=== PATIENT | male | born 1980 | race Caucasian/White ===

== ENCOUNTER 2019-06-20 10:08 | Emergency (ER) | payer OTHER, SELFPAY ==
[2019-06-20 10:50] VITALS: BP 136/91; PULSE 85; RESP 18; TEMP 36.8; O2SAT 98
--- NOTE | 2019-06-20 11:04 | ED.URI ---
HPI - URI/Sore Throat General Chief Complaint: Upper Respiratory Infection Stated Complaint: Cough Time Seen by Provider: 06/20/19 11:04 Source: patient and family History of Present Illness HPI Narrative: Patient presents with a cough, no chest pain no shortness of breath does have nasal congestion no fever no body aches. Patient states she is a normally healthy individual patient states his son tested positive for strep 5 days ago and is worried that he may have strep throat. Patient states no trouble swallowing no drooling. MD elicited complaint: cough, rhinorrhea and nasal congestion Related Data Home Medications Medication Instructions Recorded Confirmed atorvastatin 10 mg PO DAILY 06/20/19 06/20/19 dulaglutide [Trulicity] 1.5 mg SUBCUT WEEKLY 06/20/19 06/20/19 metformin 500 mg PO BID 06/20/19 06/20/19 Allergies Allergy/AdvReac Type Severity Reaction Status Date / Time Penicillins Allergy Unknown Verified 06/20/19 10:46 Review of Systems Review of Systems: Narrative: CONSTITUTIONAL: Denies chills, or sweats. Reports fever and generalized body aches EYES: Denies visual changes, redness, or discharge. ENT: Denies otalgia. Reports nasal congestion runny nose and sore throat CARDIOVASCULAR: Denies chest pain, palpitations, or edema. RESPIRATORY: Denies dyspnea. Reports occasional cough GASTROINTESTINAL: Denies abdominal pain, nausea, vomiting, or diarrhea. GENITOURINARY: Denies dysuria or hematuria. SKIN: Denies rash or itching. MUSCULOSKELETAL: Denies back pain, joint pain, or myalgia. Reports generalized body aches NEUROLOGIC: Denies headache, numbness, or weakness. PSYCHIATRIC: Denies anxiety or depression. PMFSH Comments At time of signature, agree with nursing past medical, surgical, social and family history. There is no relevant family history pertinent to the presenting complaint Exam Narrative: Exam Narrative: GENERAL APPEARANCE: The patient is a well-developed, well-nourished , in no acute distress. SKIN: Skin is warm and dry without erythema, swelling or exudate. There is good turgor. No tenting. HEAD: Atraumatic. Normocephalic. No temporal or scalp tenderness. EYES: Moist and bright. Sclera and conjunctivae normal. No discharge. PERRLA. Extraocular motions intact. Gross visual acuity intact. EARS: Pinna is normal shape and contour. Clear external auditory canals. TM pearly castellanos with good cone of light, no erythema or suppuration. Bilateral cerumen noted no gross hearing deficit. NOSE: pink, moist mucosa with good air movement. Clear rhinorrhea without nasal flaring. Septum midline. Mild pharyngeal erythremia no exudate no trismus no drooling can open mouth fully Mouth: moist mucous membranes. THROAT; mild erythema noted to posterior oropharynx with moderate postnasal drainage. Without exudate or ulceration.. Uvula midline. Normal movement of soft palate. NECK: Supple and nontender with full range of motion without discomfort. No meningeal signs. LUNGS: Equal and bilateral breath sounds without wheezes, rales or rhonchi. CHEST: The chest wall is without retractions or use of accessory muscles. HEART: Has a regular rate and rhythm without murmur, gallops, click or rub. ABDOMEN: Soft, nontender with positive active bowel sounds. No rebound tenderness. EXTREMITIES: Without cyanosis, clubbing or edema. Equal 2+ distal pulses and 2 second capillary refill noted. NEUROLOGIC: alert, active, developmentally normal for age. The patient moves all extremities with normal muscle strength. Normal muscle tone is noted. Normal coordination is noted. NO focal neurological findings noted. Course Vital Signs Vital signs: Vital Signs Temperature 36.8 C 06/20/19 10:50 Pulse Rate 85 06/20/19 10:50 Respiratory Rate 06/20/19 10:50 Blood Pressure 136/91 H 06/20/19 10:50 Pulse Oximetry 98 06/20/19 10:50 Temperature 36.8 C 06/20/19 10:50 Pulse Rate 85 06/20/19 10:50 Respiratory Rate 18 06/20/19 10
== END 2019-06-20 11:33 | disposition home or self-care (01) ==
PROVIDERS: Emergency Provider Nurse Practitioner Family; PCP Internal Medicine Geriatric Medicine
DX: J06.9 Acute upper respiratory infection, unspecified (principal); J02.9 Acute pharyngitis, unspecified; E78.00 Pure hypercholesterolemia, unspecified; I10 Essential (primary) hypertension; E11.9 Type 2 diabetes mellitus without complications
CPT/HCPCS: 87081; 87880; 99203; G0463

== ENCOUNTER 2022-05-28 11:05 | Emergency (ER) | payer OTHER, SELFPAY ==
--- NOTE | 2022-05-28 11:08 | ED.URI ---
HPI - URI/Sore Throat General Chief Complaint: Upper Respiratory Infection Stated Complaint: Cold/flu Time Seen by Provider: 05/28/22 11:08 Source: patient and RN notes reviewed History of Present Illness HPI Narrative: patient is a 41-year-old male who presents to urgent care with complaints of cough, fatigue, sinus pressure and drainage. Patient states it started on Saturday and he was too fatigued to go to work today. Patient denies any ill exposures. Denies any fever, nausea or vomiting. States that he has been taking Mucinex for the cough. No other acute complaints. No acute distress noted. Patient aware of the plan of care. Some parts of this dictation were generated by voice recognition software and may contain typographical and/or grammatical inaccuracies. Related Data Home Medications Medication Instructions Recorded Confirmed atorvastatin 10 mg tablet 10 mg PO DAILY 06/20/19 06/20/19 dulaglutide 1.5 mg/0.5 mL 1.5 mg subcut WEEKLY 06/20/19 06/20/19 subcutaneous pen injector (Trulicity) metformin 500 mg tablet 500 mg PO BID 06/20/19 06/20/19 fluoxetine 20 mg tablet mg 05/28/22 glimepiride 2 mg tablet 2 mg DIRECTED 05/28/22 05/28/22 losartan 50 mg tablet mg 05/28/22 Allergies Allergy/AdvReac Type Severity Reaction Status Date / Time Penicillins Allergy Unknown Verified 06/20/19 10:46 Review of Systems Review of Systems: CONSTITUTIONAL: Denies fever, chills, or sweats. reports of fatigue EYES: Denies visual changes, redness, or discharge. ENT: Reports of congestion, postnasal drainage CARDIOVASCULAR: Denies chest pain, palpitations, or edema. RESPIRATORY: reports of cough without dyspnea GASTROINTESTINAL: Denies abdominal pain, nausea, vomiting, or diarrhea. GENITOURINARY: Denies dysuria or hematuria. SKIN: Denies rash or itching. MUSCULOSKELETAL: Denies back pain, joint pain, or myalgia. NEUROLOGIC: Denies headache, numbness, or weakness. All other systems reviewed are negative, except as documented in HPI. PMFSH Comments At the time of my signature, I reviewed and agree with the nursing past medical, surgical, social, and family history. There is no relevant family history pertinent to the patient complaint. Exam Narrative: GENERAL: This is a well-nourished, well-developed patient, in no apparent distress. HEAD: normocephalic, atraumatic. EYES: PERRL. Sclera clear/white. Vision is grossly intact. EARS: External ears normal, auditory canals clear and without drainage, TMs normal without perforation. Hearing grossly intact. NOSE: External nose normal with no obvious nasal discharge, nares without redness, clear rhinorrhea. THROAT: Mucous membranes moist, posterior pharynx clear. mild postnasal drainage NECK: Neck supple, non-tender without lymphadenopathy, masses or thyromegaly. CARDIOVASCULAR: Regular rate and rhythm without murmurs, gallops, or rubs. RESPIRATORY: Clear to auscultation. Breath sounds equal bilaterally. No wheezes, rales, or rhonchi. SKIN: warm, intact with no suspicious lesions or rash, good texture and turgor. NEURO: awake, alert, and oriented to person, place and time. There were no obvious focal neurologic abnormalities. EXTREMITIES: No clubbing, cyanosis, or edema. Course Course Level of Care: Express Care Visit Vital Signs Vital signs: Vital Signs Temperature 98.8 F 05/28/22 11:10 Pulse Rate 104 H 05/28/22 11:10 Respiratory Rate 20 05/28/22 11:10 Blood Pressure 129/87 05/28/22 11:10 Pulse Oximetry 98 05/28/22 11:10 Oxygen Delivery Room Air 05/28/22 11:10 Temperature 98.8 F 05/28/22 11:10 Pulse Rate 104 H 05/28/22 11:10 Respiratory Rate 20 05/28/22 11:10 Blood Pressure 129/87 05/28/22 11:10 Pulse Oximetry 98 05/28/22 11:10 Oxygen Delivery Room Air 05/28/22 11:10 reviewed MDM - URI/Sore Throat MDM Narrative Medical decision making narrative: advised patient to use [id number] medications such as Z
[2022-05-28 11:10] VITALS: BP 129/87; PULSE 104; RESP 20; TEMP 37.1; O2SAT 98
== END 2022-05-28 11:48 | disposition home or self-care (01) ==
PROVIDERS: Emergency Provider Nurse Practitioner Family; PCP Internal Medicine Geriatric Medicine
DX: B34.9 Viral infection, unspecified (principal); E78.00 Pure hypercholesterolemia, unspecified; I10 Essential (primary) hypertension; E11.9 Type 2 diabetes mellitus without complications; F41.9 Anxiety disorder, unspecified
CPT/HCPCS: 99211; G0463

== ENCOUNTER 2023-03-01 15:12 | Emergency (ER) | payer OTHER, SELFPAY ==
--- NOTE | 2023-03-01 15:18 | ED.BACK ---
HPI - Back Pain/Injury General Chief Complaint: Skin/Abscess/Foreign Body Stated Complaint: Lower Back Irritation Source: patient and RN notes reviewed History of Present Illness HPI Narrative: 42 yo M presents to urgent care with complaints of itchy bumps to his back. Pt states they appeared the first time 2 weeks ago and lasted about a week. Pt states they went away on their own but then reappeared in the same place. Pt reports associated itchiness. Denies any fevers, chills, or other symptoms. Related Data Home Medications Medication Instructions Recorded Confirmed atorvastatin 10 mg tablet 10 mg PO DAILY 06/20/19 05/28/22 dulaglutide 1.5 mg/0.5 mL 1.5 mg subcut WEEKLY 06/20/19 05/28/22 subcutaneous pen injector ([facility]) metformin 500 mg tablet 500 mg PO BID 06/20/19 05/28/22 fluoxetine 20 mg tablet 20 mg DIRECTED 05/28/22 05/28/22 glimepiride 2 mg tablet 2 mg DIRECTED 05/28/22 05/28/22 losartan 50 mg tablet 50 mg DIRECTED 05/28/22 05/28/22 Allergies Allergy/AdvReac Type Severity Reaction Status Date / Time Penicillins Allergy Unknown Verified 06/20/19 10:46 Review of Systems Review of Systems: CONSTITUTIONAL: Denies fever, chills, or sweats. EYES: Denies visual changes, redness, or discharge. ENT: Denies otalgia and sore throat CARDIOVASCULAR: Denies chest pain, palpitations, or edema. RESPIRATORY: Denies cough or dyspnea. GASTROINTESTINAL: Denies abdominal pain, nausea, vomiting, or diarrhea. GENITOURINARY: Denies dysuria or hematuria. SKIN: itchy rash MUSCULOSKELETAL: Denies back pain, joint pain, or myalgia. NEUROLOGIC: Denies headache, numbness, or weakness. Pertinent positives per HPI. PMFSH Comments At the time of my signature, I reviewed and agree with the nursing past medical, surgical, social, and family history. There is no relevant family history pertinent to the patient complaint. Exam Narrative: GENERAL: This is a well-nourished, well-developed patient, in no apparent distress. HEAD: normocephalic, atraumatic. EYES: Sclera clear/white. Vision is grossly intact. EARS: External ears normal, auditory canals clear and without drainage. Hearing grossly intact. NOSE: External nose normal with no obvious nasal discharge, nares without redness, no rhinorrhea. THROAT: Mucous membranes moist, posterior pharynx clear. NECK: Neck supple, non-tender without lymphadenopathy, masses or thyromegaly. CARDIOVASCULAR: Regular rate RESPIRATORY: No respiratory distress SKIN: (6) erythremic welts; 4 to right lower back and 2 to left lower back. no surrounding erythema, no fluctuance, no induration or drainage. NEURO: awake, alert, and oriented to person, place and time. There were no obvious focal neurologic abnormalities. EXTREMITIES: No clubbing, cyanosis, or edema. No joint tenderness, effusion, or edema noted. BACK: Nontender without deformity or crepitus. No flank tenderness. Course Course Level of Care: Express Care Visit Vital Signs Vital signs: reviewed MDM - Back Pain/Injury MDM Narrative Medical decision making narrative: Apply the cream twice a day for a week. Monitor symptoms. Look for bedbugs when you go home. Differential Diagnosis Differential diagnosis: Likely other (hives, bed bugs, contact dermatitis, spider bite, shingles) Critical Care Time Critical Care Time Critical Care Time: No Discharge Plan Discharge Clinical Impression: Insect bite Qualifiers: Encounter type: initial encounter Site of insect bite: lower back Qualified Code(s): S30.860A - Insect bite (nonvenomous) of lower back and pelvis, initial encounter Patient Disposition: Home, Self-Care Condition: Stable Instructions: Insect Bite or Sting (ED) Additional Instructions: Apply the cream twice a day for a week. Monitor symptoms. Look for bedbugs when you go home. Prescriptions: New triamcinolone acetonide 0.5 % cream 1 applic topical BID 7 Days Qty: 15 0RF No Ac
[2023-03-01 15:20] VITALS: BP 139/90; PULSE 92; RESP 20; TEMP 36.5; O2SAT 97
== END 2023-03-01 15:39 | disposition home or self-care (01) ==
PROVIDERS: Emergency Provider Nurse Practitioner Family; PCP Internal Medicine Geriatric Medicine
DX: S30.860A Insect bite (nonvenomous) of lower back and pelvis, initial encounter (principal); W57.XXXA Bitten or stung by nonvenomous insect and other nonvenomous arthropods, initial encounter; E78.00 Pure hypercholesterolemia, unspecified; I10 Essential (primary) hypertension; E11.9 Type 2 diabetes mellitus without complications; Z79.84 Long term (current) use of oral hypoglycemic drugs
CPT/HCPCS: 99213; G0463

== ENCOUNTER 2024-04-08 10:35 | Emergency (ER) | payer OTHER, SELFPAY ==
[2024-04-08 10:40] VITALS: BP 144/82; PULSE 80; RESP 16; TEMP 36.7; O2SAT 99
--- NOTE | 2024-04-08 10:51 | ED_ITS ---
HPI - URI/Sore Throat General Chief Complaint: Upper Respiratory Infection Stated Complaint: no voice/cough/throat/drainage Time Seen by Provider: 04/08/24 10:59 Source: patient and RN notes reviewed Mode of arrival: ambulatory Limitations: no limitations History of Present Illness HPI Narrative: 43-year-old male presents with concern for 5 day history of cough, hoarse voice, sore throat, general malaise, body aches. He reports he had a negative COVID test at home. MD elicited complaint: cough Related Data Home Medications ?Medication ?Instructions ?Recorded ?Confirmed ?Last Taken ?Type atorvastatin 10 mg tablet 10 mg PO DAILY 06/20/19 05/28/22 Unknown History dulaglutide 1.5 mg/0.5 mL 1.5 mg subcut WEEKLY 06/20/19 05/28/22 Unknown History subcutaneous pen injector (Trulicity) metformin 500 mg tablet 500 mg PO BID 06/20/19 05/28/22 Unknown History fluoxetine 20 mg tablet 20 mg DIRECTED 05/28/22 05/28/22 Unknown History glimepiride 2 mg tablet 2 mg DIRECTED 05/28/22 05/28/22 Unknown History losartan 50 mg tablet 50 mg DIRECTED 05/28/22 05/28/22 Unknown History Allergies Allergy/AdvReac Type Severity Reaction Status Date / Time Penicillins Allergy Unknown Verified 04/08/24 10:52 Review of Systems Review of Systems: CONSTITUTIONAL: Reports malaise, chills, fever. EYES: Denies visual changes, redness, or discharge. ENT: Reports rhinorrhea, congestion, and sore throat. CARDIOVASCULAR: Denies chest pain, palpitations, or edema. RESPIRATORY: Reports cough. Denies dyspnea. GASTROINTESTINAL: Denies abdominal pain, nausea, vomiting, diarrhea SKIN: Denies rash or itching. MUSCULOSKELETAL: Report myalgia. NEUROLOGIC: Reports headache. All systems reviewed & are unremarkable except as noted in HPI and below PMFSH Comments At time of signature, agree with nursing past medical, surgical, social and family history. There is no relevant family history pertinent to the presenting complaint Exam Narrative: GENERAL: Nontoxic-appearing, well-nourished, and in no acute distress. HEAD: Normocephalic EYES: PERRLA, conjunctivae clear ENT: Nares clear. Mucous membranes moist. TM pearly locke with dull light reflex bilaterally; no tragal tenderness. Oropharynx not erythematous without lesions. Tonsils not enlarged and without exudate, no drooling, no hoarseness, no trismus, uvula midline. NECK: Supple. No lymphadenopathy CHEST: Clear to auscultation, breath sounds equal. No wheezing, rhonchi, rales, or stridor. No respiratory distress, speaks in full sentences. Cough noted HEART: Regular rate and rhythm. No murmur heard. SKIN: Warm, dry, no rash. NEURO: Alert and oriented x3. PSYCH: Normal mood and affect Course Course Emergency Course: Patient is aware of diagnosis, understands and agrees to treatment plan. Anticipatory guidance given. Patient agrees to follow-up as directed and is aware of reasons to seek care at the emergency department. Portions of this record may have been created with voice recognition software Level of Care: Express Care Visit Vital Signs Vital signs: Vital Signs Temperature 98.1 F 04/08/24 10:40 Pulse Rate 80 04/08/24 10:40 Respiratory Rate 16 04/08/24 10:40 Blood Pressure 144/82 H 04/08/24 10:40 Pulse Oximetry 99 04/08/24 10:40 Oxygen Delivery Room Air 04/08/24 10:40 Temperature 98.1 F 04/08/24 10:40 Pulse Rate 80 04/08/24 10:40 Respiratory Rate 16 04/08/24 10:40 Blood Pressure 144/82 H 04/08/24 10:40 Pulse Oximetry 99 04/08/24 10:40 Oxygen Delivery Room Air 04/08/24 10:40 Reviewed. MDM - URI/Sore Throat MDM Narrative Medical decision making narrative: Differential diagnosis considered: Dumont virus, strep pharyngitis, allergic rhinitis, upper respiratory tract infection, sinusitis, rhinosinusitis, nasopharyngitis. viral pharyngitis, otitis media, otitis externa, pneumonia, bronchitis, viral cough syndrome, viral syndrome, and influenza. Exam findings show no acute concerns or changes; patient is non-toxic appearing and is in no distress. Patient is appropriate for outpatient treatment and follow-up. Lab Data Attestation: I reviewed the patient's lab results. Labs: Lab Results 04/08/24 Range/Units 11:08 POC Influenza A Ag Negative (Negative) POC Influenza B Ag Pending POC SARS CoV-2 Ag Negative (Negative) Critical Care Time Critical Care Time Critical Care Time: No Discharge Plan Discharge Clinical Impression: Upper respiratory infection with cough and congestion Patient Disposition: Home, Self-Care Condition: Stable Instructions: Antibiotic Form, Acute Cough (ED) Additional Instructions: Take medication as prescribed Recommend antihistamine such as Benadryl at night time and Zyrtec or Linda during the day Also, recommend symptomatic treatment includes: rest, fluids, and increase humidity of the air at home. Recommend Acetaminophen as directed on the bottle to reduce fever, pain, headache. Avoid smoking/second-hand smoke. Please schedule a follow-up visit with your personal physician for further evaluation and treatment within 3-5days. Including recheck and discussion of your blood pressure. If your symptoms persist, change or worsen significantly before you can contact your personal physician then please, without delay, go to the emergency department for further evaluation. Patient Language: German Prescriptions: New doxycycline monohydrate 100 mg tablet 100 mg PO BID 7 Days Qty: 14 0RF methylprednisolone [Medrol (Enoc)] 4 mg tablets,dose pack See Rx Instructions .ROUTE .COMPLEX Qty: 21 0RF Rx Instructions: orally per package directions No Action metformin 500 mg Tablet 500 mg PO BID atorvastatin 10 mg Tablet 10 mg PO DAILY Trulicity 1.5 mg/0.5 mL Pen Injector 1.5 mg SUBCUT WEEKLY losartan 50 mg tablet 50 mg DIRECTED fluoxetine 20 mg tablet 20 mg DIRECTED glimepiride 2 mg tablet 2 mg DIRECTED triamcinolone acetonide 0.5 % cream 1 applic topical BID 7 Days Qty: 15 0RF Follow-up/Referrals: [place],MD May [Primary Care Provider] - Time of Disposition: 11:15
[2024-04-08 11:10] LABS: EDCOVIDSCREEN Negative (Negative); EDINFLUASCREEN Negative (Negative)
[2024-04-10 09:26] LABS: EDINFLUBSCREEN Negative (Negative)
== END 2024-04-08 11:19 | disposition home or self-care (01) ==
PROVIDERS: Emergency Provider Nurse Practitioner; PCP Internal Medicine Geriatric Medicine
DX: J06.9 Acute upper respiratory infection, unspecified (principal); Z20.822 Contact with and (suspected) exposure to COVID-19
CPT/HCPCS: 87426; 87804; 99213; G0463